=== PATIENT | female | born 1995 | race Caucasian/White ===

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

== ENCOUNTER 2017-02-04 22:56 | Emergency (ER) | payer MEDICAID ==
[2017-02-04 23:13] VITALS: O2SAT 100
[2017-02-04 23:38] LABS: HCG,QUALITATIVE URINE NEGATIVE (NEGATIVE); SQUAMOUS EPITHIAL 6 /hpf (0-5); URINE BACTERIA FEW (<OCC); URINE BILIRUBIN NEGATIVE (NEGATIVE); URINE BLOOD NEGATIVE (NEGATIVE); URINE CLARITY Hazy (Clear); URINE COLOR Yellow (YELLOW); URINE GLUCOSE (UA) NORMAL (Normal); URINE LEUKOCYTE ESTERASE NEG Leu/uL (Negative); URINE NITRATE NEGATIVE (NEGATIVE); URINE PROTEIN 1+ mg/dL (NEGATIVE)
[2017-02-05] MEDS ORDERED: Sodium Chloride 0.9% 1,000 ML IV ONE (00:20)
[2017-02-05] MEDS ORDERED: Sodium Chloride 0.9% 1,000 ML ONE (00:25)
[2017-02-05 00:38] LABS: BASO # 0.1 K/uL (0.0-0.2); BASO % 0.6 % (0.0-2.0); EOS # 0.1 K/uL (0.0-0.7); EOS % 0.8 % (0.0-4.0); HEMOGLOBIN 13.9 g/dL (11.0-16.0); LYMPH # 4.3 K/uL (1.0-4.3); MEAN CELL VOLUME 89.5 fL (81.0-99.0); MEAN CORPUSCULAR HEMOGLOBIN 29.6 pg (27.0-31.0); MEAN CORPUSCULAR HGB CONC 33.1 g/dL (33.0-37.0); MONO # 0.9 K/uL (0.0-0.8); MONO % 7.5 % (0.0-10.0); NEUT # 6.3 K/uL (1.8-7.0); NEUT % 54.1 % (50.0-75.0); RBC 4.7 Mil/uL (3.80-5.20); RED CELL DISTRIBUTION WIDTH 12.3 % (11.5-14.5); WHITE BLOOD COUNT 11.7 K/uL (4.8-10.8)
--- NOTE | 2017-02-05 00:52 | C.PDOC ---
Time Seen by Provider: 02/04/17 23:18 Chief Complaint (Nursing): Abdominal Pain History Per: Patient Onset/Duration Of Symptoms: Hrs (1) Current Symptoms Are (Timing): Still Present Severity: Moderate Location Of Pain/Discomfort: Suprapubic Radiation Of Pain To:: None Quality Of Discomfort: "Pain" Associated Symptoms: Fever (?) Exacerbating Factors: None Alleviating Factors: None Last Bowel Movement: Today Additional History Per: Prior Records Abnormal Vaginal Bleeding: No Past Medical History Reviewed: Historical Data, Nursing Documentation, Vital Signs Vital Signs: Last Vital Signs Temp 98 F 02/04/17 23:08 Pulse 100 H 02/04/17 23:08 Resp 20 02/04/17 23:08 BP 94/64 L 02/04/17 23:08 Pulse Ox 100 02/05/17 00:53 - Medical History PMH: Anemia, Asthma Surgical History: No Surg Hx - [facility] Procedures APPLICATION OF SPLINT (12/10/14) Family History: States: Unknown Family Hx - Social History Hx Tobacco Use: No Hx Alcohol Use: No Hx Substance Use: No - Immunization History Hx Tetanus Toxoid Vaccination: Yes Hx Influenza Vaccination: Yes Hx Pneumococcal Vaccination: Yes Review Of Systems Except As Marked, All Systems Reviewed And Found Negative. Constitutional: Negative for: Weakness Cardiovascular: Negative for: Chest Pain Respiratory: Negative for: Shortness of Breath Gastrointestinal: Negative for: Vomiting, Diarrhea Genitourinary: Positive for: Pelvic Pain. Negative for: Dysuria Musculoskeletal: Negative for: Neck Pain, Back Pain Skin: Negative for: Rash Neurological: Negative for: Weakness, Numbness, Seizures, Altered Mental Status Physical Exam - Physical Exam Appears: Non-toxic, No Acute Distress Skin: Normal Color, Warm, Dry, No Rash Head: Atraumatic, Normacephalic Eye(s): bilateral: Normal Inspection, PERRL, EOMI Neck: Normal ROM, Supple Cardiovascular: Rhythm Regular Respiratory: Normal Breath Sounds, No Accessory Muscle Use Gastrointestinal/Abdominal: Soft, Tenderness (suprapubic) Back: No CVA Tenderness Pelvic: No Vaginal Bleeding, Vaginal Discharge (mild ernst-looking discharge on vaginal martin), No Cervical Motion Tenderness, Adnexal Tenderness (left), Mass (?Left adnexal?) Neurological/Psych: Oriented x3, Normal Motor, Normal Sensation ED Course And Treatment - Laboratory Results Result Diagrams: 02/05/17 00:34 Urine POC: Negative O2 Sat by Pulse Oximetry: 100 Pulse Ox Interpretation: Normal Disposition - Disposition Disposition Time: 01:00 Condition: STABLE - Clinical Impression Clinical Impression: Pelvic pain Physician Patient Turnover Patient Signed Over To: Mehdi Gomes Handoff Comments: to f/up pelvic U/S and reassess/dispo pt.
[2017-02-05 00:56] LABS: ALBUMIN 4.5 g/dL (3.5-5.0)
[2017-02-05 00:59] LABS: AST/SGOT 23 U/L (14-36); GFR AFRICAN-AMERICAN > 60; GFR NON-AFRICAN AMERICAN > 60
[2017-02-05 01:00] LABS: ALB/GLOB RATIO 1.3 (1.0-2.1); ALT/SGPT 22 U/L (9-52); BLOOD UREA NITROGEN 10 mg/dL (7-17)
[2017-02-05 02:17] VITALS: BP 96/60; PULSE 64; RESP 16; TEMP 97.7
--- NOTE | 2017-02-05 09:39 | US ---
HISTORY: Pelvic pain. Left adnexal mass/tenderness on exam. COMPARISON: None available. TECHNIQUE: Transvaginal pelvic ultrasound was performed. FINDINGS: UTERUS: Measures 8.0 x 3.0 x 0.2 cm. The uterus is anteverted and normal in size. There is a bicornuate uterus. ENDOMETRIUM: Measures 9 mm in diameter. Unremarkable. CERVIX: No cervical abnormality identified. RIGHT OVARY: Measures 3.3 x 2.0 x 2.7 cm. No solid mass. Normal flow. LEFT OVARY: Measures 3.5 x 2.9 x 3.2 cm. No solid mass. Normal flow. FREE FLUID: There is small amount of free fluid in the pelvis, likely physiologic. OTHER FINDINGS: None. IMPRESSION: 1. Bicornuate uterus. 2. No evidence of adnexal mass or ovarian cyst. A preliminary report was provided by [employer] [facility].
== END 2017-02-05 02:31 | disposition home or self-care (01) ==
LOC: C.ER 22:56
DX: R10.2 Pelvic and perineal pain (principal)
CPT/HCPCS: 76830; 80053; 81001; 84703; 85025; 87491; 87591; 99284; J7040

== ENCOUNTER 2017-06-28 02:26 | Emergency (ER) | payer MEDICAID ==
[2017-06-28 02:39] VITALS: O2SAT 99
--- NOTE | 2017-06-28 03:08 | C.PDOC ---
History Of Present Illness 21 year old female presents to ED with complaints of chest pain, shortness of breath and tingling sensation to all extremities starting one hour ago. Patient states she was in bed trying to sleep, but also texting her friend when symptoms started. She admits to problems with her boyfriend. She describes the pain as chest tightness and feeling short of breath. She also states she feels numbness to nose and mouth as well as her hands and legs. She did not take any medication for symptoms. Additionally patient admits she had recent elective on 06/03/17/ She denies any alcohol or drug use. (Diamante Maya) History Per: Patient History/Exam Limitations: no limitations Onset/Duration Of Symptoms: Hrs Current Symptoms Are (Timing): Still Present Quality: Tightness Associated Symptoms: Dyspnea, Other (Tingling/Numbness to extremities, nose, and mouth) Modifying Factors: None Exacerbating Factors: None Alleviating Factors: None Recent travel outside of the [place]: No Time Seen by Provider: 06/28/17 02:42 Chief Complaint (Nursing): Chest Pain Past Medical History Reviewed: Historical Data, Nursing Documentation, Vital Signs - Medical History PMH: Anemia, Asthma Surgical History: No Surg Hx Family History: States: Unknown Family Hx - Social History Hx Tobacco Use: No Hx Alcohol Use: No Hx Substance Use: No - Immunization History Hx Tetanus Toxoid Vaccination: Yes Hx Influenza Vaccination: Yes Hx Pneumococcal Vaccination: Yes Vital Signs: Last Vital Signs Temp 98.2 F 06/28/17 04:00 Pulse 85 06/28/17 04:00 Resp 16 06/28/17 04:00 BP 122/71 06/28/17 04:00 Pulse Ox 99 06/28/17 04:05 - [facility] Procedures APPLICATION OF SPLINT (12/10/14) Review Of Systems Cardiovascular: Positive for: Chest Pain Respiratory: Positive for: Shortness of Breath Neurological: Positive for: Numbness (and tingling to extremities, nose, mouth) Physical Exam - Physical Exam Appears: Non-toxic, Other (Anxious, Crying) Skin: Normal Color, Warm, Dry Head: Atraumatic, Normacephalic Eye(s): bilateral: Normal Inspection Oral Mucosa: Moist Neck: Normal ROM Chest: Symmetrical, Tenderness (Reproducibly anterior and midsternal) Cardiovascular: Rhythm Regular, No Murmur Respiratory: Normal Breath Sounds, No Rales, No Rhonchi, No Wheezing Gastrointestinal/Abdominal: Soft, No Tenderness Extremity: Normal ROM (x4), No Tenderness, No Deformity, No Swelling Pulses: Left Radial: Normal Neurological/Psych: Oriented x3, Normal Speech, Other (No focal deficits) ED Course And Treatment ECG: Interpreted By Me, Viewed By Me ECG Rhythm: Sinus Rhythm ECG Interpretation: No Acute Changes Interpretation Of ECG: NST at 97 bpm with sinus arrhythmia Rate From EC O2 Sat by Pulse Oximetry: 99 - Radiology CXR: Interpreted by Me, Viewed By Me CXR Interpretation: Yes: No Acute Disease, Heart Size (normal). No: Infiltrates Medical Decision Making Medical Decision Making: Impression: Chest pain and SOB likely anxiety Plan: * EKG * Xanax PO * CXR Progress: Patient placed on wireless telegrapher. O2 given via nasal cannula. Treat with Xanax PO. 0345 Patient states she is feeling better, all her symptoms have resolved. Patient is seated comfortably in no distress and her boyfriend is at bedside. Patient asking for discharge. Urine still shows positive test. Explain result to patient and instruct her to follow up with traveling missionary (Diamante Maya) Disposition Counseled Patient/Family Regarding: Diagnosis, Need For Followup - Disposition Disposition Time: 03:46 - POA Present On Arrival: None - Disposition Referrals: Non [facility] Provider, [Primary Care Provider] - Disposition: HOME/ ROUTINE Condition: IMPROVED Additional Instructions: Follow up with your primary medical doctor or clinic in 2-5 days for further evaluation. Take any pain medicine as needed. Return to the emergency department at any time if symptoms persist or worsen. Instructions: Anxiety (ED) Forms: [employer] (Mohawk) - Clinical Impression Clinical Impression: Anxiety - Scribe Statement The provider has reviewed the documentation as recorded by the Scribe - Scribe Statement Rojelio Mtz All medical record entries made by the Scribe were at my direction and personally dictated by me. I have reviewed the chart and agree that the record accurately reflects my personal performance of the history, physical exam, medical decision making, and the department course for this patient. I have also personally directed, reviewed, and agree with the discharge instructions and disposition. (Diamante Maya)
[2017-06-28 03:34] LABS: RBC URINE < 1 /hpf (0-3); URINE BACTERIA RARE (<OCC); URINE BILIRUBIN NEGATIVE (NEGATIVE); URINE BLOOD NEGATIVE (NEGATIVE); URINE COLOR Yellow (YELLOW); URINE GLUCOSE (UA) NORMAL (Normal); URINE KETONE 1+ mg/dL (NEGATIVE); URINE LEUKOCYTE ESTERASE NEG Leu/uL (Negative); URINE PROTEIN NEGATIVE (NEGATIVE); URINE UROBILINOGEN NORMAL mg/dL (0.2-1.0); WBC URINE 1 /hpf (0-5)
[2017-06-28 04:09] VITALS: BP 122/71; PULSE 85; RESP 16; TEMP 98.2
--- NOTE | 2017-06-28 09:21 | RAD ---
HISTORY: sob, pain, anxiety COMPARISON: Chest radiographs 05/15/2016. TECHNIQUE: Chest PA and lateral FINDINGS: LUNGS: No active pulmonary disease. PLEURA: No significant pleural effusion identified. No pneumothorax apparent. CARDIOVASCULAR: Normal. OSSEOUS STRUCTURES: No significant abnormalities. VISUALIZED UPPER ABDOMEN: Normal. OTHER FINDINGS: None. IMPRESSION: No interval acute cardiopulmonary disease appreciated.
== END 2017-06-28 04:16 | disposition home or self-care (01) ==
LOC: C.ER 02:26 → SUPCPDRO 02:26 → C.ER 04:16
DX: F41.9 Anxiety disorder, unspecified (principal)

== ENCOUNTER 2018-01-21 15:09 | Emergency (ER) | payer MEDICAID ==
[2018-01-21 15:23] VITALS: BMI 21.2
[2018-01-21 15:26] VITALS: RESP 18; O2SAT 100
[2018-01-21] MEDS ORDERED: Albuterol-Ipratrop 3 mg / 0.5 (3 ml) UD ONE (16:12)
--- NOTE | 2018-01-21 16:28 | C.PDOC ---
History Of Present Illness 22 y/o female presents to ED with c/o sob for 4 days. Patient reports she has history of Asthma but has not had asthma symptoms for awhile. Patient denies chest pain, cough, nausea, vomiting or any other complaints at this time. Time Seen by Provider: 01/21/18 15:27 Chief Complaint (Nursing): Chest Pain History Per: Patient Onset/Duration Of Symptoms: Days (4) Initiating Event: Upper Respiratory Illness Quality: Tightness Severity: Mild Associated Symptoms: Tingling In Hands Or Face (occasional) Past Medical History Reviewed: Historical Data, Nursing Documentation, Vital Signs Vital Signs: Last Vital Signs Temp 98.7 F 01/21/18 15:23 Pulse 94 H 01/21/18 15:50 Resp 18 01/21/18 15:50 BP 118/70 01/21/18 15:50 Pulse Ox 100 01/21/18 17:13 - Medical History PMH: Anemia, Anxiety, Asthma Surgical History: No Surg Hx - [facility] Procedures APPLICATION OF SPLINT (12/10/14) Family History: States: Unknown Family Hx - Social History Hx Tobacco Use: No Hx Alcohol Use: No Hx Substance Use: No - Immunization History Hx Tetanus Toxoid Vaccination: Yes Hx Influenza Vaccination: Yes Hx Pneumococcal Vaccination: Yes Review Of Systems Constitutional: Negative for: Fever, Chills Cardiovascular: Negative for: Chest Pain Respiratory: Positive for: Shortness of Breath. Negative for: Cough Gastrointestinal: Negative for: Nausea, Vomiting Skin: Negative for: Rash Psych: Positive for: Anxiety Physical Exam - Physical Exam Appears: Non-toxic, No Acute Distress Skin: Warm, Dry, No Rash Head: Atraumatic, Normacephalic Eye(s): bilateral: Normal Inspection Oral Mucosa: Moist Neck: Normal ROM, Supple Chest: Tenderness (reproducible chest wall) Cardiovascular: Rhythm Regular Respiratory: Normal Breath Sounds, No Rales, No Rhonchi, No Wheezing Gastrointestinal/Abdominal: Soft, No Tenderness, No Guarding, No Rebound Extremity: Normal ROM, No Pedal Edema, Capillary Refill (<2 seconds) Neurological/Psych: Oriented x3, Normal Speech, Normal Cognition Gait: Steady ED Course And Treatment - Laboratory Results Urine POC: Negative ECG: Interpreted By Me ECG Rhythm: Sinus Rhythm ECG Interpretation: Normal Rate From EC (BPM) O2 Sat by Pulse Oximetry: 100 (RA) Pulse Ox Interpretation: Normal - Radiology CXR: Interpreted by Me CXR Interpretation: Yes: No Acute Disease Progress Note: Patient treated with duoneb and motrin. On re-evaluation lungs clear. PERC score 0 Reassessment Condition: Improved Disposition Counseled Patient/Family Regarding: Studies Performed, Diagnosis, Need For Followup, Rx Given - Disposition Referrals: [facility] [Outside] [facility] [Outside] Disposition: HOME/ ROUTINE Disposition Time: 17:20 Condition: STABLE Prescriptions: Albuterol HFA [Ventolin HFA 90 mcg/actuation (8 g)] 2 puff IH [id number] PRN #2 puff PRN Reason: Cough Instructions: Shortness of Breath (Dyspnea) (DC) Forms: [employer] (Cymro) - POA Present On Arrival: None - Clinical Impression Clinical Impression: Dyspnea - PA / CHEST PAINTING LEADER / Resident Statement MD/DO has reviewed & agrees with the documentation as recorded. - Scribe Statement The provider has reviewed the documentation as recorded by the Cloveribleonel Solorzano All medical record entries made by the Cloveribleonel were at my direction and personally dictated by me. I have reviewed the chart and agree that the record accurately reflects my personal performance of the history, physical exam, medical decision making, and the department course for this patient. I have also personally directed, reviewed, and agree with the discharge instructions and disposition.
[2018-01-21] MEDS: Albuterol-Ipratrop 3 mg / 0.5 (3 ml) UD IH SCH (16:29)
--- NOTE | 2018-01-21 17:05 | RAD ---
HISTORY: COMPARISON: 06/28/2017. TECHNIQUE: Chest PA and lateral FINDINGS: LINES AND TUBES: None. LUNG AND PLEURA: The lungs are well inflated and clear. No pleural effusion or pneumothorax. HEART AND MEDIASTINUM: The heart is not enlarged. The hilar and mediastinal contours are within normal limits. SKELETAL STRUCTURES: The bony structures are within normal limits for the patient's age. VISUALIZED UPPER ABDOMEN: Normal. OTHER FINDINGS: None. IMPRESSION: No active pulmonary disease.
[2018-01-21 17:36] VITALS: BP 112/64; PULSE 91; TEMP 98.3
== END 2018-01-21 17:37 | disposition home or self-care (01) ==
LOC: C.ER 15:09
DX: R06.00 Dyspnea, unspecified (principal); J45.909 Unspecified asthma, uncomplicated